=== PATIENT | female | born 1950 | race Caucasian/White ===

== ENCOUNTER 2017-02-24 10:57 | Day surgery (SDC) | payer OTHER, MEDICARE ==
[~2017-02-24] VITALS: Ht 167.6 cm; Wt 106.5 kg
[~2017-02-24 10:57] MED LIST: CLARITIN,ALAVAR10 MG PO; FEOSOL325 MG PO; FLONASE16 G1 BOTH NARES; LITE COAT ASPI325 M1 PO; MULTIPLE VITAM1 EACH PO; PROAIR HFA8.5 GM IH; VALIUM5 MG PO; ZANTAC150 MG PO; ZESTORETIC 20-1 EAC2 PO
[2017-02-24 11:23] VITALS: BP 149/72
[2017-02-24 14:40] VITALS: BP 137/67
[2017-02-24 15:25] VITALS: BP 134/68
== END 2017-02-24 15:25 | disposition home or self-care (01) ==
LOC: SDC 10:57
DX: H35.341 Macular cyst, hole, or pseudohole, right eye (principal); H35.371 Puckering of macula, right eye; H35.81 Retinal edema; I10 Essential (primary) hypertension; J45.909 Unspecified asthma, uncomplicated; K21.9 Gastro-esophageal reflux disease without esophagitis; E66.01 Morbid (severe) obesity due to excess calories; Z68.41 Body mass index [BMI] 40.0-44.9, adult; G47.33 Obstructive sleep apnea (adult) (pediatric); R73.03 Prediabetes
CPT/HCPCS: J0690; J2250; J3010; J3300